=== PATIENT | female | born 1975 | race Caucasian/White ===

== ENCOUNTER 2023-02-28 12:39 | Outpatient (REF) | payer MEDICAID, SELFPAY ==
[2023-03-04 17:39] LABS: HIV RNA PCR Qn Copies Not Detected Copies/mL; HIV RNA PCR Qn Log Copies Not Detected Log cps/mL
== END 2023-02-28 12:40 | disposition home or self-care (01) ==
LOC: HO.CHCLDS 12:39
PROVIDERS: Visit Provider Pediatrics
DX: Z11.4 Encounter for screening for human immunodeficiency virus [HIV] (principal); F41.9 Anxiety disorder, unspecified; R63.4 Abnormal weight loss
CPT/HCPCS: 36415; 80048; 80076; 82306; 84443; 85025; 86803; 87536; 87900

== ENCOUNTER 2023-05-27 | Outpatient (REF) | payer MEDICAID, SELFPAY | END 2023-05-27 00:01 | disposition home or self-care (01) | LOC: HO.HHCLNP | PROVIDERS: Visit Provider Internal Medicine | DX: N89.8 Other specified noninflammatory disorders of vagina (principal); R30.0 Dysuria | CPT/HCPCS: 36415; 81513; 87086; 87481; 87491; 87591; 87661 ==

== ENCOUNTER 2024-04-02 11:22 | Outpatient (REF) | payer MEDICAID, SELFPAY ==
[2024-04-03 04:15] LABS: HIV AB/AG Nonreactive (Nonreactive); HIV Num 1 0.05 S/CO (0.00-0.99)
[2024-04-05 17:59] LABS: HCV Log PCR <1.18 NOT DETECTED Log IU/mL (NOT DETECTED); HepC Viral Load <15 NOT DETECTED IU/mL (NOT DETECTED)
== END 2024-04-02 11:23 | disposition home or self-care (01) ==
LOC: HO.CHCLDS 11:22
PROVIDERS: Visit Provider Pediatrics
DX: Z30.42 Encounter for surveillance of injectable contraceptive (principal)
CPT/HCPCS: 36415; 87389; 87522

== ENCOUNTER 2024-11-09 10:26 | Outpatient (REF) | payer MEDICAID, SELFPAY ==
--- OUTSIDE RECORDS SUMMARY | 2024-11-09 11:58 | XMS_ITS | Encounter Summary ---
Author Organization [employer] [facility] Address [address] [place] [address] Care Team Providers Care Chiropractic Practice Manager Name Role Phone Reema Salazar MD Primary Care Provider [phone] Encounter Details Date Type Department Care Team (Latest Contact Info) Description 11/09/2024 Travel Social History Tobacco Use Types Packs/Day Years Used Date Smoking Tobacco: Never Passive Smoke Exposure: Never Smokeless Tobacco: Never Depression Answer Date Recorded Patient Health Questionnaire-9 Score 0 11/09/2024 Patient Health Questionnaire-9 Score 0 11/09/2024 Last PHQ-9: Questionnaire Data Not on file 0 11/09/2024 Housing Stability Answer Date Recorded What is your housing situation today? I have spring ortiz 03/10/[address] you li ve. Do you have problems with any of the following? None of the above 03/10/2023 Food Insecurity Answer Date Recorded Within the past 12 months, y ou worried that your food would run out before you got money to buy more: Never True 03/10/2023 Within the past 12 months,th e food you bought just didn't last and you didn't have enough money to get more: Never True Transportation Answer Date Recorded In the past 12 months, has l ack of transportation kept you from medical appts, meetings, work or from getting things needed for daily living? No 03/10/2023 Utilities Answer Date Recorded In the past 12 months, has t he electric, gas, oil or water company threatened to shut off services in your home? No 03/10/2023 Depression Answer Date Recorded Patient Health Questionnaire-2 Score 0 11/09/2024 Internet Access Answer Date Recorded Internet Access Q1 Yes 01/26/2024 Internet Access Q2 Not on file 01/26/2024 Comments No Sex and Gender Information Value Date Recorded Sex Assigned at Female 03/25/2022 10:14 AM EDT Legal Sex Female 10:14 AM EDT Gender Identity Choose not to disclose 10:14 AM EDT Sexual Orientation Choose not to disclose 2021 10:14 AM EDT documented as of this encounter Functional Status * Over the past 2 weeks, how often have you been bothered by any of the following problems? Question Answer Date of Assessment Author Patient Health Questionnaire -2 Score 0 11/09/2024 10:13 AM EDT Srikanth Owen MA * Little interest or pleasure in doing things Answer Date of Assessment Author Not at all 11/09/2024 10:13 AM EDT Shayy Gore MA * Feeling down, depressed, or hopeless Answer Date of Assessment Author Not at all 11/09/2024 10:13 AM EDT Shayy Gore MA * Trouble falling or staying asleep, or sleeping too much Answer Date of Assessment Author Not at all 11/09/2024 10:13 AM EDShayy Dodd MA * Feeling tired or having little energy Answer Date of Assessment Author Not at all 11/09/2024 10:13 AM AUBRIET Shayy Gore MA * Poor appetite or overeating Answer Date of Assessment Author Not at all 11/09/2024 10:13 AM EDT Shayy Gore MA * Feeling bad about yourself - or that you are a failure or have let yourself or your family down Answer Date of Assessment Author Not at all 11/09/2024 10:13 AM EDShyay Dodd MA * Trouble concentrating on things, such as reading the newspaper or watching television Answer Date of Assessment Author Not at all 11/09/2024 10:13 AM Shayy Mi MA * Moving or speaking so slowly that other people could have noticed? Or the opposite - being so fidgety or restless that you have been moving around a lot more than usual. Answer Date of Assessment Author Not at all 11/09/2024 10:13 AM Shayy Mi MA * Thoughts that you would be better off or hurting yourself in some way Answer Date of Assessment Author Not at all 11/09/2024 10:13 AM EDT Shayy Gore MA * Patient Health Questionnaire-9 Score Answer Date of Assessment Author 0 11/09/2024 10:13 AM EDT Shayy Gore MA documented as of this encounter Plan of Treatment Upcoming Encounters Date Type Department Care Team (Late st Contact Info) Description 11/25/2024 3:15 PM EDT Clinical Support [facility] [address] [place] [address] documented as of this encounter Visit Diagnoses Not on filedocumented in this encounter Additional Health Concerns Assessment Noted Time PHQ-9 Depression Total Score: 0 11/10/19 25 10:13 AM EDT documented as of this encounter Care Teams Chiropractic Practice Manager Relationship Specialty Start Date End Date Reema Salazar MD [address] [place] [address] PCP - General Family Medicine 01/22/18 documented as of this encounter
[2024-11-09 16:25] LABS: Bacterial Vaginosis PCR NEGATIVE (Negative); Candida Group PCR NOT DETECTED (Not Detect); Candida glab krusei PCR NOT DETECTED (Not Detect); Trichomonas vaginalis PCR NOT DETECTED (Not Detect)
[2024-11-09 16:58] LABS: CT PCR DETECTED (Not Detect.); NG PCR NOT DETECTED (Not Detect.)
[2024-11-10 02:57] LABS: HIV AB/AG Nonreactive (Nonreactive); HIV Num 1 0.06 S/CO (0.00-0.99); ~HepC Num1 0.36 S/CO (0.00-0.79); ~Hepatitis C Antibody Nonreactive (Nonreactive)
== END 2024-11-09 10:27 | disposition home or self-care (01) ==
LOC: HO.CHCLDS 10:26
PROVIDERS: Visit Provider Pediatrics
DX: N76.0 Acute vaginitis (principal)
CPT/HCPCS: 36415; 81515; 86803; 87389; 87491; 87591